=== PATIENT | female | born 1960 | race Caucasian/White ===

== ENCOUNTER 2017-04-11 07:28 | Emergency (ER) | payer MEDICAID, OTHER, SELFPAY ==
[~2017-04-11] VITALS: Ht 152.4 cm; Wt 48.8 kg
[2017-04-11 07:32] VITALS: BP 114/80
[2017-04-11] MEDS ORDERED: SODIUM CHLORIDE FLUSH 10ML SYR IVF ONE (08:30)
[2017-04-11] MEDS ORDERED: ONDANSETRON 2MG/ML, 2ML IVPush ONE (08:30)
[2017-04-11] MEDS ORDERED: SODIUM CHLORIDE 0.9% 1,000ML IVBOLUS ONE (08:30)
[2017-04-11] MEDS ORDERED: ONDANSETRON 2MG/ML, 2ML ONE (08:37)
[2017-04-11 09:03] LABS: ASPARTATE AMINO TRANSFERASE 20 U/L (15-37); BLOOD UREA NITROGEN 17 mg/dL (7-18)
[2017-04-11] MEDS ORDERED: CEFDINIR 300 MG CAPSULE PO ONE (10:00)
== END 2017-04-11 10:32 | disposition home or self-care (01) ==
LOC: ED 10:26
DX: N30.00 Acute cystitis without hematuria (principal); Z59.0 Homelessness; R11.10 Vomiting, unspecified
CPT/HCPCS: 36415; 80053; 81001; 83605; 83690; 85025; 87040; 87086; 96374; 99284; J2405; J7030; 96361

== ENCOUNTER 2017-08-04 14:21 | Emergency (ER) | payer MEDICAID ==
[~2017-08-04] VITALS: Ht 152.4 cm; Wt 49.7 kg
[2017-08-04 18:28] VITALS: BP 137/87
== END 2017-08-04 20:04 | disposition home or self-care (01) ==
LOC: ED 14:56
DX: L76.34 Postprocedural seroma of skin and subcutaneous tissue following other procedure (principal); Z90.12 Acquired absence of left breast and nipple
CPT/HCPCS: 76604

== ENCOUNTER 2017-11-10 12:19 | Emergency (ER) | payer MEDICAID ==
[~2017-11-10] VITALS: Ht 152.4 cm; Wt 54.3 kg
[2017-11-10] MEDS ORDERED: ACETAMINOPHEN 325 MG TABLET ONE (12:48)
[2017-11-10] MEDS ORDERED: ACETAMINOPHEN 325 MG TABLET PO ONE (13:00)
[2017-11-10 13:59] VITALS: BP 151/100
== END 2017-11-10 14:01 | disposition home or self-care (01) ==
LOC: ED 13:59
DX: S32.030A Wedge compression fracture of third lumbar vertebra, initial encounter for closed fracture (principal); S32.050A Wedge compression fracture of fifth lumbar vertebra, initial encounter for closed fracture; S22.070A Wedge compression fracture of T9-T10 vertebra, initial encounter for closed fracture; X50.9XXA Other and unspecified overexertion or strenuous movements or postures, initial encounter; Y93.89 Activity, other specified; Y92.89 Other specified places as the place of occurrence of the external cause; Y99.9 Unspecified external cause status
CPT/HCPCS: 72110; 99284

== ENCOUNTER 2019-02-16 15:52 | Emergency (ER) | payer MEDICAID ==
[~2019-02-16] VITALS: Ht 152.4 cm; Wt 51.3 kg
[2019-02-16 15:56] VITALS: BP 151/97
[2019-02-16] MEDS ORDERED: DIAZEPAM 5 MG TABLET ONE (16:17)
[2019-02-16] MEDS ORDERED: KETOROLAC 30 MG/1 ML ONE (16:18)
[2019-02-16] MEDS ORDERED: KETOROLAC 30 MG/1 ML IM ONE (16:30)
[2019-02-16] MEDS ORDERED: DIAZEPAM 5 MG TABLET PO ONE (16:30)
== END 2019-02-16 17:05 | disposition home or self-care (01) ==
LOC: ED 16:52
DX: M62.830 Muscle spasm of back (principal); M54.6 Pain in thoracic spine; Z85.3 Personal history of malignant neoplasm of breast
CPT/HCPCS: 72072; 96372; 99283; J1885